=== PATIENT | female | born 1980 | race Caucasian/White ===

== ENCOUNTER 2017-08-11 21:00 | Emergency (ER) | payer BC ==
[2017-08-11] MEDS ORDERED: Sodium Chloride 0.9% 1,000 ML ONE (21:34)
[2017-08-11] MEDS ORDERED: Ondansetron 4 MG/2 ML SDV ONE (21:34)
[2017-08-11] MEDS ORDERED: HYDROmorphone 0.5 MG/0.5 ML SYRINGE ONE ×2 (21:35→21:37)
[2017-08-11] MEDS ORDERED: Ketorolac 30 MG/ML SDV ONE (21:41)
--- NOTE | 2017-08-12 03:02 | EDM.PDOC ---
ED HPI GENERAL MEDICAL PROBLEM - General Chief Complaint: Abdominal Pain Stated Complaint: ABDOMINAL PAIN Time Seen by Provider: 08/12/17 01:19 Source of Information: Reports: Patient, RN Notes Reviewed - History of Present Illness INITIAL COMMENTS - FREE TEXT/NARRATIVE: 37-year-old female comes in with quite severe abdominal pain. This All started about 7 hours ago. The pain started relatively mild upper mid abdomen and then became quite severe about 2 hours ago. The last 2 hours she has had severe pain , sharp with superimposed cramping. She has had at least one or 2 BMs soft but not diarrhea. Has had many episodes of repetitive vomiting. She continues to be very nauseated with severe pain on arrival to ED. She had stirfried for lunch and also did have the same stirfrie last evening. No other family members are currently ill. She still does have her appendix and gallbladder. - Related Data Allergies Allergy/AdvReac Type Severity Reaction Status Date / Time citalopram Allergy Cannot Verified 08/12/17 01:52 Remember levothyroxine Allergy Cannot Verified 08/12/17 01:52 Remember trazodone Allergy Cannot Verified 08/12/17 01:52 Remember ED ROS GENERAL - Review of Systems Review Of Systems: See Below Constitutional: Denies: Fever, Chills HEENT: Denies: Throat Pain Respiratory: Denies: Shortness of Breath, Pleuritic Chest Pain Cardiovascular: Denies: Chest Pain GI/Abdominal: Reports: Abdominal Pain, Nausea, Vomiting. Denies: Diarrhea, Hematochezia, Melena : Reports: No Symptoms Musculoskeletal: Reports: No Symptoms Skin: Reports: No Symptoms Neurological: Reports: Dizziness ED EXAM, GI/ABD - Physical Exam Exam: See Below General Appearance: Alert, Severe Distress Eyes: Bilateral: Normal Appearance Throat/Mouth: Normal Inspection, Normal Oropharynx Head: Atraumatic. No: Facial Swelling Neck: Supple, Full Range of Motion Respiratory/Chest: No Respiratory Distress, Lungs Clear, Normal Breath Sounds Cardiovascular: Regular Rate, Rhythm GI/Abdominal Exam: Tender (Moderate diffuse tenderness upper and lower abdomen) . No: Guarding, Rebound Back Exam: No: CVA Tenderness (L), CVA Tenderness (R) Extremities: Normal Inspection, Normal Range of Motion Skin Exam: Warm, Dry, Normal Color Course - Vital Signs Last Recorded V/S: Last Vital Signs Temp 98.6 F 08/12/17 01:37 Pulse 78 08/12/17 01:37 Resp 18 08/12/17 01:37 BP Pulse Ox 100 08/12/17 01:37 - Orders/Labs/Meds Labs: Laboratory Tests 08/11/17 08/11/17 Range/Units 21:12 21:12 WBC 12.77 H (3.98-10.04) K/mm3 RBC 4.68 (3.98-5.22) M/mm3 Hgb 13.4 (11.2-15.7) gm/L Hct 39.8 (34.1-44.9) % MCV 85.0 (79.4-94.8) fl MCH 28.6 (25.6-32.2) pg MCHC 33.7 (32.2-35.5) g/dl RDW Std Deviation 41.2 (36.4-46.3) fL Plt Count 285 (182-369) K/mm3 MPV 9.2 L (9.4-12.3) fl Neutrophils % (Manual) 72 H (40-60) % Lymphocytes % (Manual) 21 (20-40) % Monocytes % (Manual) 7 (2-10) % Platelet Estimate Adequate RBC Morph Comment Normal Sodium 137 (136-145) mEq/L Potassium 3.7 (3.5-5.1) mEq/L Chloride 101 (98-107) mEq/L Carbon Dioxide 23 (21-32) mEq/L Anion Gap 16.7 H (5-15) BUN 15 (7-18) mg/dL Creatinine 0.9 (0.55-1.02) mg/dL Est Cr Clr Drug Dosing TNP Estimated GFR (MDRD) > 60 (>60) mL/min BUN/Creatinine Ratio 16.7 (14-18) Glucose 146 H (74-106) mg/dL Calcium 9.6 (8.5-10.1) mg/dL Total Bilirubin 0.4 (0.2-1.0) mg/dL AST 26 (15-37) U/L ALT 23 (14-59) U/L Alkaline Phosphatase 67 (46-116) U/L Total Protein 8.6 H (6.4-8.2) g/dl Albumin 4.0 (3.4-5.0) g/dl Globulin 4.6 gm/dL Albumin/Globulin Ratio 0.9 L (1-2) Lipase 128 (73-393) U/L - Re-Assessments/Exams Free Text/Narrative Re-Assessment/Exam: 08/12/17 03:00 Patient was given Dilaudid 0.5 mg IV, Zofran 4 mg IV, Ativan 0.5 mg IV due to severity of pain and quite severe anxiety associated with the pain on arrival to ED. With that and time she has had complete resolution of her discomfort., Mildly elevated WBC, chemistries normal. Repeat exam at time of discharge quite benign, discharge instructions as documented. Departure - Departure Time of Disposition: 22:00 Disposition: Home, Self-Care 01 Condition: Fair Clinical Impression: Abdominal pain Qualifiers: Abdominal location: generalized Qualified Code(s): R10.84 - Generalized abdominal pain Vomiting Qualifiers: Vomiting type: unspecified Vomiting Intractability: non-intractable Nausea presence: with nausea Qualified Code(s): R11.2 - Nausea with vomiting, unspecified - Discharge Information Referrals: Larry Ortiz MD [Primary Care Provider] - Forms: ED Department Discharge
== END 2017-08-12 01:20 | disposition home or self-care (01) ==
LOC: JD.ED 21:00
DX: R10.84 Generalized abdominal pain (principal); R11.2 Nausea with vomiting, unspecified; Z88.5 Allergy status to narcotic agent; Z88.1 Allergy status to other antibiotic agents
CPT/HCPCS: 36415; 80053; 83690; 85007; 85027; 96361; 96374; 96375; 99284; J1170; J1885; J2405; J7040; 99285

== ENCOUNTER 2017-08-12 04:33 | Day surgery (SDC) | payer BC ==
[2017-08-12] MEDS ORDERED: Ondansetron 4 MG/2 ML SDV IVPUSH ONE (05:02)
[2017-08-12] MEDS ORDERED: Sodium Chloride 0.9% 500 ML IV ONE (05:02)
[2017-08-12] MEDS ORDERED: HYDROmorphone 0.5 MG/0.5 ML SYRINGE IVPUSH ONE ×2 (05:06→07:45)
[2017-08-12] MEDS: Sodium Chloride 0.9% 10 ML Syringe FLUSH PRN ×2 (05:14→06:44)
--- NOTE | 2017-08-12 05:15 | EDM.PDOC ---
ED HPI GENERAL MEDICAL PROBLEM - General Chief Complaint: Abdominal Pain Stated Complaint: ABDOMINAL PAIN Time Seen by Provider: 08/12/17 04:50 Source of Information: Reports: Patient, RN Notes Reviewed - History of Present Illness INITIAL COMMENTS - FREE TEXT/NARRATIVE: 37-year-old female returns with continued abdominal pain. She was evaluated last evening about 8 hours ago for abdominal pain that started yesterday afternoon about 15 hours ago. Please refer to that record for details. She arrived last evening with very severe generalized abdominal discomfort that was completely relieved after Dilaudid 0.5 mg, Zofran 4 mg and Ativan 0.5 mg IV. Abdomen was nontender at time of discharge. She was able to sleep for a short period of time but then awakened about 90 minutes ago with recurrence of upper mid abdominal pain that progressed to lower abdominal discomfort as well. This time the pain is quite generalized across her mid and lower abdomen worse with motion. she did try drink some water at home which did make her vomit. She has not been having diarrhea. She does still have her appendix and gallbladder. There now has been some radiation of discomfort to her back. Abdomen Pain Score (Numeric/FACES): 5 - Related Data Allergies Allergy/AdvReac Type Severity Reaction Status Date / Time No Known Allergies Allergy Verified 08/12/17 04:40 Past Medical History HEENT History: Reports: Impaired Vision Gastrointestinal History: Reports: GERD Neurological History: Reports: Migraines Endocrine/Metabolic History: Reports: Hypothyroidism Social & Family History - Family History Family Medical History: Noncontributory - Tobacco Use Smoking Status *Q: Never Smoker - Caffeine Use Caffeine Use: Reports: Coffee - Recreational Drug Use Recreational Drug Use: No ED ROS GENERAL - Review of Systems Review Of Systems: See Below Constitutional: Reports: Chills. Denies: Fever, Diaphoresis HEENT: Reports: No Symptoms Respiratory: Denies: Shortness of Breath, Pleuritic Chest Pain Cardiovascular: Denies: Chest Pain GI/Abdominal: Reports: Abdominal Pain, Nausea, Vomiting Musculoskeletal: Reports: Back Pain Skin: Reports: No Symptoms Neurological: Reports: No Symptoms ED EXAM, GI/ABD - Physical Exam Exam: See Below General Appearance: Alert, Moderate Distress Eyes: Bilateral: Normal Appearance Throat/Mouth: Normal Inspection Head: Normocephalic Neck: Supple, Full Range of Motion Respiratory/Chest: No Respiratory Distress, Lungs Clear, Normal Breath Sounds Cardiovascular: Tachycardia GI/Abdominal Exam: Rebound (Mild), Tender (There is tenderness of the entire upper abdomen and also moderate tenderness of the entire lower abdomen. She does not have guarding but does have mild rebound tenderness). No: Guarding Extremities: Normal Inspection, Normal Range of Motion Skin Exam: Warm, Dry, Normal Color Course - Vital Signs Last Recorded V/S: Last Vital Signs Temp 98.7 F 08/12/17 15:00 Pulse 82 08/12/17 15:00 Resp 16 08/12/17 15:00 BP 108/58 L 08/12/17 15:00 Pulse Ox 95 08/12/17 15:00 - Orders/Labs/Meds Labs: Laboratory Tests 08/12/17 08/12/17 08/12/17 Range/Units 04:40 04:40 04:40 WBC 13.90 H (3.98-10.04) K/mm3 RBC 4.16 (3.98-5.22) M/mm3 Hgb 12.1 (11.2-15.7) gm/L Hct 35.8 (34.1-44.9) % MCV 86.1 (79.4-94.8) fl MCH 29.1 (25.6-32.2) pg MCHC 33.8 (32.2-35.5) g/dl RDW Std Deviation 40.9 (36.4-46.3) fL Plt Count 259 (182-369) K/mm3 MPV 9.4 (9.4-12.3) fl Neutrophils % (Manual) 91 H (40-60) % Band Neutrophils % 2 (0-10) % Lymphocytes % (Manual) 5 L (20-40) % Atypical Lymphs % 0 % Monocytes % (Manual) 2 (2-10) % Eosinophils % (Manual) 0 L (0.7-5.8) % Basophils % (Manual) 0 L (0.1-1.2) Platelet Estimate Adequate RBC Morph Comment Normal C-Reactive Protein 1.4 H* (<1.0) mg/dL HCG, Qual Negative (NEGATIVE) Meds: Medications Discontinued Medications Generic Name Dose Route Start Last Admin Trade Name Freq PRN Reason Stop Dose Admin Hydrocodone Bitart/Acetaminophen 1 tab 08/12/17 12:22 08/12/17 14:00 [place] 325-5 Mg PO 08/12/17 12:23 1 tab ONETIME ONE Administration Bupivacaine HCl Confirm 08/12/17 09:30 08/12/17 11:15 [place] 0.5% Administered 08/12/17 09:31 9 ml Dose Administration 30 ml .ROUTE .STK-MED ONE Dexamethasone Confirm 08/12/17 11:08 Dexamethasone Administered 08/12/17 11:09 Dose 8 mg .ROUTE .STK-MED ONE Diatrizoate Meglum/Diatrizoate Sod 90 ml 08/12/17 06:33 08/12/17 06:44 Gastrografin 37% PO 08/12/17 06:34 90 ml ONETIME ONE Administration Fentanyl Confirm 08/12/17 10:11 Sublimaze Administered 08/12/17 10:12 Dose 250 mcg .ROUTE .STK-MED ONE Fentanyl 50 mcg 08/12/17 11:16 Sublimaze IVPUSH Q5M PRN Pain Glycopyrrolate Confirm 08/12/17 11:33 Administered 08/12/17 11:34 Dose 1 mg .ROUTE .STK-MED ONE Hydromorphone HCl 0.5 mg 08/12/17 05:06 08/12/17 05:14 Dilaudid IVPUSH 08/12/17 05:07 0.5 mg ONETIME ONE Administration Hydromorphone HCl 0.5 mg 08/12/17 07:45 08/12/17 07:53 Dilaudid IVPUSH 08/12/17 07:46 0.5 mg ONETIME ONE Administration Hydromorphone HCl 0.5 mg 08/12/17 11:16 Dilaudid IVPUSH ONETIME PRN Pain (severe 7-10) Sodium Chloride 500 mls @ 999 mls/hr 08/12/17 05:02 08/12/17 05:11 Normal Saline IV 08/12/17 05:32 999 mls/hr .BOLUS ONE Administration Cefoxitin Sodium 1 gm/ Premix 50 mls @ 100 mls/hr 08/12/17 07:30 08/12/17 07: 40 IV 08/12/17 07:59 100 mls/hr ONETIME ONE Administration Metronidazole 500 mg/ Premix 100 mls @ 100 mls/hr 08/12/17 07:31 08/12/17 08: 21 IV 08/12/17 08:30 100 mls/hr ONETIME ONE Administration Lidocaine HCl Confirm 08/12/17 10:12 Xylocaine-Mpf 1% Administered 08/12/17 10:13 Dose 4 mls @ as directed .ROUTE .STK-MED ONE Lactated Ringer's Confirm 08/12/17 11:20 Ringers, Lactated Administered 08/12/17 11:21 Dose 1,000 mls @ as directed .ROUTE .STK-MED ONE Lactated Ringer's Confirm 08/12/17 11:31 Ringers, Lactated Administered 08/12/17 11:32 Dose 1,000 mls @ as directed .ROUTE .STK-MED ONE Iopamidol 125 ml 08/12/17 06:33 08/12/17 06:44 Isovue-300 (61%) IVPUSH 08/12/17 06:34 125 ml ONETIME ONE Administration Ketorolac Tromethamine Confirm 08/12/17 11:41 Toradol Administered 08/12/17 11:42 Dose 30 mg .ROUTE .STK-MED ONE Meperidine HCl 12.5 mg 08/12/17 11:16 Demerol IVPUSH ONETIME PRN shivering Metoclopramide HCl 5 mg 08/12/17 05:48 08/12/17 05:53 Reglan IVPUSH 08/12/17 05:49 5 mg ONETIME ONE Administration Midazolam HCl Confirm 08/12/17 10:11 Versed 1 Mg/Ml Administered 08/12/17 10:12 Dose 2 mg .ROUTE .STK-MED ONE Neostigmine Methylsulfate Confirm 08/12/17 11:33 Neostigmine Administered 08/12/17 11:34 Dose 5 mg .ROUTE .STK-MED ONE Ondansetron HCl 4 mg 08/12/17 05:02 08/12/17 05:11 Zofran IVPUSH 08/12/17 05:03 4 mg ONETIME ONE Administration Ondansetron HCl Confirm 08/12/17 10:11 Zofran Administered 08/12/17 10:12 Dose 4 mg .ROUTE .STK-MED ONE Ondansetron HCl 4 mg 08/12/17 11:16 Zofran IVPUSH ONETIME PRN Nausea/Vomiting Propofol Confirm 08/12/17 10:11 Diprivan 20 Ml Administered 08/12/17 10:12 Dose 200 mg .ROUTE .STK-MED ONE Rocuronium [place] Confirm 08/12/17 10:11 Zemuron Administered 08/12/17 10:12 Dose 50 mg .ROUTE .STK-MED ONE Sodium Chloride 10 ml 08/12/17 05:02 08/12/17 06:44 Saline Flush FLUSH 10 ml ASDIRECTED PRN Administration Keep Vein Open - Re-Assessments/Exams Free Text/Narrative Re-Assessment/Exam: 08/12/17 07:26 CT shows dilated fluid-filled appendix with surrounding inflammatory changes. We 'll get some antibiotics started. Will discuss with Dr. Eugene Cornejo, General Surgeon reception. Departure - Departure Time of Disposition: 07:30 Disposition: DC/Tfer to [facility] Access 66 Condition: Serious Clinical Impression: Appendicitis Qualifiers: Appendicitis type: acute appendicitis Acute appendicitis type: unspecified acute appendicitis type Qualified Code(s): K35.80 - Unspecified acute appendicitis - Discharge Information ED Communication - Discussed Case With (1) Discussed Case With (1): Admitting Provider (Dr Cornejo, 07:30)
[2017-08-12] MEDS ORDERED: Metoclopramide 10 MG/2 ML SDV IVPUSH ONE (05:48)
[2017-08-12] MEDS ORDERED: Diatrizoate Meglumine/Diatrizoate Sodium 37% 120 ML Bottle PO ONE (06:33)
[2017-08-12] MEDS ORDERED: Iopamidol 612 MG/ML 150 ML Bottle IVPUSH ONE (06:33)
[2017-08-12] MEDS ORDERED: cefOXitin 1 GM in Premix Bag 1 BAG IV ONE (07:30)
[2017-08-12] MEDS ORDERED: metroNIDAZOLE/Normal Saline 500 MG in Premix Bag 1 BAG IV ONE (07:31)
--- NOTE | 2017-08-12 08:29 | PCM.PREANE ---
Preanesthetic Assessment - Anesthesia/Transfusion/Family Hx Anesthesia History: Prior Anesthesia Without Reaction Family History of Anesthesia Reaction: No Transfusion History: No Prior Transfusion(s) - Review of Systems General: Fever, Fatigue, Chills Pulmonary: No Symptoms Cardiovascular: No Symptoms Gastrointestinal: Abdominal Pain, Decreased Appetite, Nausea, Vomiting Neurological: Headache Other: Reports: Thyroid Problems (Hypothyroidism), Anxiety - Physical Assessment NPO Status Date: 08/12/17 NPO Status Time: 06:44 (Oral Contrast) O2 Sat by Pulse Oximetry: 95 Respiratory Rate: 18 Vital Signs: Last Vital Signs Temp 37.8 C 08/12/17 04:38 Pulse 109 H 08/12/17 04:38 Resp 18 08/12/17 04:38 BP 118/64 08/12/17 04:38 Pulse Ox 95 08/12/17 04:38 Height: 1.68 m Weight: 63.503 kg ASA Class: 2E Mental Status: Alert & Oriented x3 Airway Class: Mallampati = 1 Dentition: Reports: Normal Dentition Thyro-Mental Finger Breadths: 3 Mouth Opening Finger Breadths: 3 ROM/Head Extension: Full Lungs: Clear to Auscultation, Normal Respiratory Effort Cardiovascular: Regular Rate, Regular Rhythm - Lab Values: Laboratory Last Values WBC 13.90 K/mm3 (3.98-10.04) H 08/12/17 04:40 RBC 4.16 M/mm3 (3.98-5.22) 08/12/17 04:40 Hgb 12.1 gm/L (11.2-15.7) 08/12/17 04:40 Hct 35.8 % (34.1-44.9) 08/12/17 04:40 MCV 86.1 fl (79.4-94.8) 08/12/17 04:40 MCH 29.1 pg (25.6-32.2) 08/12/17 04:40 MCHC 33.8 g/dl (32.2-35.5) 08/12/17 04:40 RDW Std Deviation 40.9 fL (36.4-46.3) 08/12/17 04:40 Plt Count 259 K/mm3 (182-369) 08/12/17 04:40 MPV 9.4 fl (9.4-12.3) 08/12/17 04:40 Neutrophils % (Manual) 91 % (40-60) H 08/12/17 04:40 Band Neutrophils % 2 % (0-10) 08/12/17 04:40 Lymphocytes % (Manual) 5 % (20-40) L 08/12/17 04:40 Atypical Lymphs % 0 % 08/12/17 04:40 Monocytes % (Manual) 2 % (2-10) 08/12/17 04:40 Eosinophils % (Manual) 0 % (0.7-5.8) L 08/12/17 04:40 Basophils % (Manual) 0 (0.1-1.2) L 08/12/17 04:40 Platelet Estimate Adequate 08/12/17 04:40 RBC Morph Comment Normal 08/12/17 04:40 C-Reactive Protein 1.4 mg/dL (<1.0) H* 08/12/17 04:40 HCG, Qual Negative (NEGATIVE) 08/12/17 04:40 - Allergies Allergies/Adverse Reactions: Allergies Allergy/AdvReac Type Severity Reaction Status Date / Time No Known Allergies Allergy Verified 08/12/17 04:40 - Acknowledgements Anesthesia Type Planned: General Anesthesia Pt an Appropriate Candidate for the Planned Anesthesia: Yes Alternatives and Risks of Anesthesia Discussed w Pt/Guardian: Yes Pt/Guardian Understands and Agrees with Anesthesia Plan: Yes PreAnesthesia Questionnaire HEENT History: Reports: Impaired Vision Gastrointestinal History: Reports: GERD Neurological History: Reports: Migraines Endocrine/Metabolic History: Reports: Hypothyroidism - SUBSTANCE USE Smoking Status *Q: Never Smoker Recreational Drug Use History: No - CURRENT (IN HOUSE) MEDS Current Meds: Current Medications Metronidazole 500 mg/ Premix 100 mls @ 100 mls/hr IV ONETIME ONE Stop: 08/12/17 08:30 Last Admin: 08/12/17 08:21 Dose: 100 mls/hr Sodium Chloride (Saline Flush) 10 ml FLUSH ASDIRECTED PRN PRN Reason: Keep Vein Open Last Admin: 08/12/17 06:44 Dose: 10 ml Discontinued Medications Diatrizoate Meglum/Diatrizoate Sod (Gastrografin 37%) 90 ml PO ONETIME ONE Stop: 08/12/17 06:34 Last Admin: 08/12/17 06:44 Dose: 90 ml Hydromorphone HCl (Dilaudid) 0.5 mg IVPUSH ONETIME ONE Stop: 08/12/17 05:07 Last Admin: 08/12/17 05:14 Dose: 0.5 mg Hydromorphone HCl (Dilaudid) 0.5 mg IVPUSH ONETIME ONE Stop: 08/12/17 07:46 Last Admin: 08/12/17 07:53 Dose: 0.5 mg Sodium Chloride (Normal Saline) 500 mls @ 999 mls/hr IV .BOLUS ONE Stop: 08/12/17 05:32 Last Admin: 08/12/17 05:11 Dose: 999 mls/hr Cefoxitin Sodium 1 gm/ Premix 50 mls @ 100 mls/hr IV ONETIME ONE Stop: 08/12/17 07:59 Last Admin: 08/12/17 07:40 Dose: 100 mls/hr Iopamidol (Isovue-300 (61%)) 125 ml IVPUSH ONETIME ONE Stop: 08/12/17 06:34 Last Admin: 08/12/17 06:44 Dose: 125 ml Metoclopramide HCl (Reglan) 5 mg IVPUSH ONETIME ONE Stop: 08/12/17 05:49 Last Admin: 08/12/17 05:53 Dose: 5 mg Ondansetron HCl (Zofran) 4 mg IVPUSH ONETIME ONE Stop: 08/12/17 05:03 Last Admin: 08/12/17 05:11 Dose: 4 mg
[2017-08-12] MEDS ORDERED: Bupivacaine 0.5% 30 ML SDV ONE (09:30)
[2017-08-12] MEDS ORDERED: Propofol 200 MG/20 ML SDV ONE (10:11)
[2017-08-12] MEDS ORDERED: Midazolam 1 MG/ML 2 ML SDV ONE (10:11)
[2017-08-12] MEDS ORDERED: Ondansetron 4 MG/2 ML SDV ONE (10:11)
[2017-08-12] MEDS ORDERED: Rocuronium 50 MG/5 ML Vial ONE (10:11)
[2017-08-12] MEDS ORDERED: fentaNYL 250 MCG/5 ML SDV ONE (10:11)
[2017-08-12] MEDS ORDERED: Lidocaine 1% 4 ML ONE (10:12)
--- NOTE | 2017-08-12 10:48 | CT ---
CT abdomen and pelvis Technique: Multiple axial sections were obtained from above the dome of the diaphragm inferiorly through the pubic symphysis. Intravenous and oral contrast has been utilized. Delayed images were obtained through the bladder. Comparison: No prior abdominal imaging. Findings: Dilated appendix is seen with proximal appendicolith and smaller more distal appendicoliths. The larger appendicolith measures about 1.3 cm in size. Mild surrounding inflammatory change is seen and findings are compatible with appendicitis. Visualized lung bases show nothing acute. Liver shows no focal parenchymal abnormality. Spleen appears within normal limits. Adrenal glands show no nodule. Kidneys show symmetric contrast enhancement. Two small low density findings are seen within the left kidney measuring less than 1 cm. These are too small to characterize by Hounsfield unit measurements but most likely represent small cysts. Kidneys are otherwise unremarkable. Pancreas appears within normal limits. Gallbladder contains no calcified gallstones. Aorta shows no aneurysmal dilatation. No retroperitoneal adenopathy or mesenteric abnormalities are seen. Multiple uterine fibroids are seen within the uterus as well as incidental nabothian cyst. No additional pelvic abnormality is seen. No free fluid is seen. Delayed images show contrast within the distal ureters and within the bladder. Bone window settings were reviewed which appear within normal limits for the patient's age. Impression: 1. Findings compatible with appendicitis as noted above. 2. Other incidental findings. Diagnostic code #5 I agree with preliminary report from [facility], finalized at 08/12/17, 8:15 AM Central Time
[2017-08-12] MEDS ORDERED: Dexamethasone 4 MG/ML SDV ONE (11:08)
[2017-08-12] MEDS ORDERED: fentaNYL 100 MCG/2 ML SDV IVPUSH PRN (11:16)
[2017-08-12] MEDS ORDERED: Meperidine PF 50 MG/ML Syringe IVPUSH PRN (11:16)
[2017-08-12] MEDS ORDERED: Ondansetron 4 MG/2 ML SDV IVPUSH PRN (11:16)
[2017-08-12] MEDS ORDERED: HYDROmorphone 0.5 MG/0.5 ML Syringe IVPUSH PRN (11:16)
[2017-08-12] MEDS ORDERED: Lactated Ringers 1,000 ML ONE ×2 (11:20→11:31)
[2017-08-12] MEDS ORDERED: Neostigmine Methylsulfate 1 MG/ML 5 ML Syringe ONE (11:33)
[2017-08-12] MEDS ORDERED: Ketorolac 30 MG/ML SDV ONE (11:41)
--- NOTE | 2017-08-12 11:56 | PCM.OPNOTE ---
- General Post-Op/Procedure Note Date of Surgery/Procedure: 08/12/17 Operative Procedure(s): laop apy Pre Op Diagnosis: acute appendicitis Post-Op Diagnosis: Same Anesthesia Technique: General ET Tube Primary Surgeon: Jorge Cornejo EBL in mLs: 5 Complications: None Condition: Good
--- NOTE | 2017-08-12 12:05 | PCM.POSTAN ---
POST ANESTHESIA ASSESSMENT - MENTAL STATUS Mental Status: Alert, Oriented - VITAL SIGNS Pulse Rate: 110 SaO2: 96 Resp Rate: 13 Blood Pressure: 104/59 Temperature: 99.4 F - RESPIRATORY Respiratory Status: Respiratory Rate WNL, Airway Patent, O2 Saturation Stable, Supplemental Oxygen - CARDIOVASCULAR CV Status: Pulse Rate WNL, Blood Pressure Stable - GASTROINTESTINAL GI Status: No Symptoms - PAIN Pain Score: 0 - POST OP HYDRATION Hydration Status: Adequate & Stable
[2017-08-12] MEDS ORDERED: Acetaminophen/HYDROcodone 325-5 MG Tab PO ONE (12:22)
--- NOTE | 2017-08-12 13:06 | PCM48HPAN ---
Post Anesthesia Note - EVALUATION WITHIN 48HRS OF ANESTHETIC Vital Signs in Normal Range: Yes Patient Participated in Evaluation: Yes Respiratory Function Stable: Yes Airway Patent: Yes Cardiovascular Function Stable: Yes Hydration Status Stable: Yes Pain Control Satisfactory: Yes Nausea and Vomiting Control Satisfactory: Yes Mental Status Recovered: Yes
--- NOTE | 2017-08-13 07:42 | HP ---
DATE OF ADMISSION: 08/12/2017 HISTORY OF PRESENT ILLNESS: A 37-year-old, who has abdominal pain in the right lower quadrant. This began yesterday about noon time, was crampy abdominal pain, was seen in the emergency room and at 9 o'clock in the evening felt to have flu-like symptoms. She returned at about 3 or 3:30 and was noted to have pain in the right lower quadrant with tenderness. CT scan confirmed appendicitis. I was called about 8 this morning to see the patient and started antibiotics. The patient was noted to have a white count of 13,000. PAST MEDICAL HISTORY: Good health. CURRENT MEDICATIONS: Per medication reconciliation form. SOCIAL HISTORY: Never smoked. ALLERGIES: No known allergies. REVIEW OF SYSTEMS: No chest pain, shortness of breath, cough, hoarseness, wheezing, fainting, weakness, numbness, or convulsions. PHYSICAL EXAMINATION: VITAL SIGNS: Temperature 100, pulse 109, respirations 18, and blood pressure 118/64. GENERAL: Reveals alert, cooperative female. EYES: Sclerae white. Extraocular muscle motion normal. ORAL CAVITY: Healthy mucous membrane with mouth and tongue. NECK: Supple. No nodes. No thyromegaly. LUNGS: Clear. No rales, rhonchi, fremitus, or dullness. CARDIAC: Heart tones regular rate. No S3, S4, jugular venous distention or murmurs. ABDOMEN: Shows tenderness throughout the abdomen, but marked in the right lower quadrant. EXTREMITIES: Upper and lower extremities, no angulation deformities. SKIN: Warm and dry. PSYCHIATRIC: Normal. NEUROLOGIC: No sensorineural deficit. Cranial nerves 3 through 12 intact. ASSESSMENT: Acute appendicitis, appears to be advanced. PLAN: For laparoscopic appendectomy. Discussed the procedure, risks, and complications. She understands and consents. MMODAL /[id number]
--- NOTE | 2017-08-13 07:42 | OR ---
DATE OF OPERATION: 08/12/2017 SURGEON: Jorge Cornejo MD PREOPERATIVE DIAGNOSIS: Acute appendicitis. POSTOPERATIVE DIAGNOSIS: Acute appendicitis. OPERATION PERFORMED: Laparoscopic appendectomy. ANESTHESIA: Done under general anesthetic. ESTIMATED BLOOD LOSS: 35 mL. FINDINGS: Distended appendix and appearance of necrosis. There was some fluid in the pelvis, but the reaction was minimal around the appendix itself. DESCRIPTION OF PROCEDURE: The patient was taken to the operating room, placed in a supine position, connected to monitoring equipment, and given general anesthetic and intubated. Antibiotics had been given. The abdomen was prepped with chlorhexidine, alcohol prepped and draped off in a sterile fashion. Incision was made just below the umbilicus, carried down by sharp dissection to the fascia, which was incised. Abdominal cavity was entered. Tika trocar was placed and secured with stay sutures. Pneumoperitoneum was established. A 5-mm 30-degree camera was then inserted showing the appendix in the right upper quadrant and the condition as described above. A 5-mm trocar was placed in the right upper quadrant and one in the right lower quadrant. The appendix was mobilized and a window was placed in the mesoappendix at its base. The Endo-ligator was placed through that, and the appendix was from the cecum and 2 firings of the Endo-ligator allowed separation of the mesoappendix from the appendix. The appendix was placed in an Endobag and removed from the abdominal cavity. Camera was then reinserted along with re-establishing the pneumoperitoneum. The pelvis was sucked free. The pericolic gutter was free as was the subhepatic space. The area was checked and hemostasis secured. This completed the intraabdominal portion of the procedure. The ports and pneumoperitoneum were removed. The fascia of the subumbilical port closed with a running 0 Vicryl suture. The skin was closed with subdermal 4-0 Dexon suture. Steri-Strips and sterile dressing placed on the wound. The patient tolerated the procedure and was sent to recovery room in a stable condition. SAHIL /[id number]
== END 2017-08-12 15:10 | disposition home or self-care (01) ==
LOC: JD.ED 04:33 → JD.SDS 08:40
PROVIDERS: ATTEND Surgery
DX: K35.3 Acute appendicitis with localized peritonitis (principal); K21.9 Gastro-esophageal reflux disease without esophagitis; E03.9 Hypothyroidism, unspecified; F41.9 Anxiety disorder, unspecified; Z79.899 Other long term (current) drug therapy
CPT/HCPCS: 36415; 44970; 74177; 84703; 85007; 85027; 86140; 96361; 96365; 96367; 96375; 96376; 99285; A9270; J0694; J1100; J1170; J1885; J2001; J2250; J2405; J2710; J2765; J3010; J7040; J7050; J7120; Q9963; Q9967; J2704

== ENCOUNTER 2023-12-16 08:03 | Day surgery (SDC) | payer BC ==
[~2023-12-16 08:03] MED LIST: Dexamethasone 4 MG/ML 5 ML MDV ONE; Ketorolac 30 MG/ML SDV ONE; Lidocaine 1% PF 2 ML SDV ONE; Midazolam 1 MG/ML 2 ML SDV ONE; Ondansetron 4 MG/2 ML SDV IVPUSH PRN; Propofol 200 MG/20 ML SDV ONE; Rocuronium 50 MG/5 ML Vial ONE; Sodium Chloride 0.9% 10 ML Syringe FLUSH PRN; ceFAZolin 2 GM Vial ONE; dexmedeTOMIDine HCl 200 MCG/2 ML SDV ONE; fentaNYL 100 MCG/2 ML SDV IVPUSH PRN; fentaNYL 250 MCG/5 ML SDV ONE
[2023-12-16] MEDS: Lactated Ringers 1,000 ML IV SCH (08:30)
[2023-12-16 08:42] LABS: BASOPHILS PERCENT AUTO 0.5 % (0.0-1.0); EOSINOPHILS ABSOLUTE AUTO 0.6 K/mm3 (0.0-0.4); EOSINOPHILS PERCENT AUTO 7.9 % (0.0-6.0); HEMATOCRIT 40.8 % (37.0-47.0); HEMOGLOBIN 13.6 gm/dl (12.0-16.0); IMMATURE GRAN ABSOLUTE AUTO 0.02 K/mm3 (0.00-0.05); IMMATURE GRAN PERCENT AUTO 0.3 % (0.0-0.4); LYMPHOCYTES ABSOLUTE AUTO 1.6 K/mm3 (1.0-4.8); LYMPHOCYTES PERCENT AUTO 21.1 % (24.0-44.0); MEAN CORPUSCULAR HEMOGLOBIN 28.8 pg (28.0-32.0); MEAN CORPUSCULAR HGB CONC 33.3 g/dl (32.0-36.0); MEAN CORPUSCULAR VOLUME 86.4 fl (83.0-99.0); MEAN PLATELET VOLUME 8.5 fl (9.4-12.3); MONOCYTES ABSOLUTE AUTO 0.4 K/mm3 (0.0-0.8); MONOCYTES PERCENT AUTO 4.8 % (0.0-8.0); NEUTROPHILS PERCENT AUTO 65.4 % (41.0-71.0); PLATELET COUNT,PLT 326 K/mm3 (150-400); RED BLOOD CELL COUNT 4.72 M/mm3 (4.10-5.30); WHITE BLOOD CELL COUNT,WBC 7.57 K/mm3 (3.9-11.3)
[2023-12-16] MEDS: Acetaminophen 325 MG Tab PO ONE (08:58)
[2023-12-16] MEDS: Celecoxib 100 MG Cap PO ONE (08:59)
[2023-12-16] MEDS: Phenazopyridine 95 MG Tab PO ONE (08:59)
[2023-12-16] MEDS: Gabapentin 300 MG Cap PO ONE (08:59)
[2023-12-16 09:00] LABS: ANION GAP 15.1 (5-15); BUN/CREATININE RATIO 18.8 (14-18); CALCIUM 9.4 mg/dL (8.5-10.1); CREATININE 0.8 mg/dL (0.55-1.02); EST CRCL DRUG DOSING (CG) 84.01 mL/min; POTASSIUM,K 4.1 mEq/L (3.5-5.1)
[2023-12-16] MEDS ORDERED: Celecoxib 100 MG Cap PO ONE (09:00)
[2023-12-16] MEDS ORDERED: Sodium Chloride 0.9% 10 ML Syringe FLUSH SCH (09:00)
[2023-12-16] MEDS ORDERED: Phenazopyridine 95 MG Tab PO ONE (09:00)
[2023-12-16] MEDS: Lidocaine 1% 30 ML SDV ONE (09:33)
[2023-12-16] MEDS: EPINEPHrine 1 MG/ML SDV ONE (09:33)
[2023-12-16] MEDS ORDERED: Lactated Ringers 1,000 ML IV ONE (10:00)
[2023-12-16] MEDS ORDERED: Sugammadex Sodium 200 MG/2 ML VIAL IV ONE ×3 (10:25→10:40)
[2023-12-16] MEDS ORDERED: Rocuronium 50 MG/5 ML Vial ONE (10:30)
[2023-12-16] MEDS ORDERED: ePHEDrine 50 MG/ML SDV ONE (10:50)
[2023-12-16] MEDS: HYDROmorphone 0.5 MG/0.5 ML Syringe IVPUSH PRN (11:31)
[2023-12-16] MEDS: oxyCODONE 5 MG Tab PO PRN (12:43)
== END 2023-12-16 13:55 | disposition home or self-care (01) ==
LOC: JD.SDS 08:03
PROVIDERS: ATTEND Obstetrics & Gynecology
DX: D25.0 Submucous leiomyoma of uterus (principal); D25.1 Intramural leiomyoma of uterus; D25.2 Subserosal leiomyoma of uterus; N83.8 Other noninflammatory disorders of ovary, fallopian tube and broad ligament; N87.0 Mild cervical dysplasia; F41.9 Anxiety disorder, unspecified; F32.A Depression, unspecified; K21.9 Gastro-esophageal reflux disease without esophagitis; E03.9 Hypothyroidism, unspecified; Z79.890 Hormone replacement therapy; Z79.899 Other long term (current) drug therapy
CPT/HCPCS: 36415; 58571; 80048; 81025; 85025; 86850; 86900; 86901; A9270; J0171; J0690; J1100; J1171; J1885; J2250; J2704; J3010; J3490; J7120; 00840